=== PATIENT | male | born 1990 | race Caucasian/White ===

== ENCOUNTER 2021-07-16 08:24 | Emergency (ER) | payer OTHER, MEDICAID, SELFPAY ==
[2021-07-16 08:42] VITALS: BP 149/63; PULSE 94; RESP 14; TEMP 36.4; O2SAT 96; BMI 27.5
--- NOTE | 2021-07-16 08:49 | ED.SKABFB ---
HPI - Skin/Abscess/Foreign Bdy General Chief complaint: Urogenital-Male Stated complaint: Rash on lower abd x 7 days Time Seen by Provider: 07/16/21 08:32 Source: patient Mode of arrival: Ambulatory Limitations: no limitations History of Present Illness HPI narrative: 31-year-old male nonsmoker in previously healthy presents with his significant other and a chief complaint of a slightly itchy rash on his central lower abdomen over the past week or so. He denies any systemic findings such as fever, chills nor nausea or vomiting. He denies any prior skin infections. He has attempted a few [id number] creams without any relief. He admits to recently shaving in this area, use of a hot tub and frequent intercourse with likely involvement of friction as a consequence. He denies any abdominal pain, change in bowel habits. He has no dysuria, frequency, urgency or discharge. Related Data Previous Rx's Medication Instructions Recorded doxycycline hyclate 100 mg tablet 100 mg PO BID #14 tab 07/16/21 Allergies Allergy/AdvReac Type Severity Reaction Status Date / Time No Known Drug Allergies Allergy Verified 07/16/21 08:45 Review of Systems Review of Systems Narrative: GENERAL: Denies chills, fatigue, malaise, fever, sweats. HEENT: Denies sinus pain, ear pain, sore throat, difficulty swallowing, dizziness. RESPIRATORY: Denies dyspnea, cough, wheezing, hemoptysis, sputum. CARDIOVASCULAR: Denies chest pain, palpitations, orthopnea, edema, GASTROINTESTINAL: Denies nausea, vomiting, abdominal pain, diarrhea, constipation, melena. : Denies dysuria, frequency, incontinence, hematuria, urinary retention. MUSCULOSKELETAL: denies weakness, joint pain, or bony pain SKIN: See HPI NEUROLOGIC: Denies weakness, headache, numbness, change in speech, confusion, seizures, incoordination. PSYCHIATRIC: No concerning psychosocial issues. 12 point review of systems is negative except for those stated above Patient History Substance Use Type: does not use Exam Narrative Exam Narrative: GEN: AOx3 and in mild distress EYES: Pupils are equal, round, and reactive to light and accommodation. Extraoccular muscles are intact bilaterally. There is no subconjunctival hemorrhage or exudate. CHEST: Lungs are clear to auscultation bilaterally and free of wheezes, rales, or rhonchi. Heart rate is regular rhythm, there are no murmurs, clicks, rubs, or gallops. There is no chest wall tenderness. ABD: Abdomen is soft and nontender. There is no guarding or rebound. Bowel sounds are normal in all 4 quadrants. There is no mass or organomegaly. EXT: Full painless ROM of all extremities with no loss of sensation or strength. SKIN: Multiple very small pustules with very minimal surrounding erythema at the base of each hair follicle most consistent with folliculitis, less likely cellulitis, no evidence of induration or fluctuance to suggest abscess Initial Vital Signs Initial Vital Signs: Vital Signs Temperature 97.6 F 07/16/21 08:42 Pulse Rate 94 H 07/16/21 08:42 Respiratory Rate 14 07/16/21 08:42 Blood Pressure 149/63 H 07/16/21 08:42 Pulse Oximetry 96 07/16/21 08:42 Course Orders Ordered: Discontinued Medications Doxycycline Hyclate (Doxycycline Hyclate 100 Mg Tablet) 100 mg PO NOW ONE Stop: 07/16/21 08:49 Last Admin: 07/16/21 09:09 Dose: 100 mg Documented by: Vital Signs Vital signs: Vital Signs - 8 hr 07/16/21 08:42 Temperature 97.6 F Pulse Rate 94 H Respiratory Rate 14 Blood Pressure 149/63 H Pulse Oximetry 96 Discharge Plan Departure Patient Disposition: Home Clinical Impression: Folliculitis Instructions: DI for Folliculitis Activity Restrictions/Additional Instructions: *You have been diagnosed with [folliculitis of lower anterior abdomen. As we discussed there is no indication of cellulitis or abscess. *What to do: *Please continue to take your regular medications as directed. [x ] New medication prescriptions sent to your pharmacy: [ [facility]] [ ] New medication written as a paper prescription [ ] No new medications given *Please follow up with your primary care provider in 2-3 days, call for an appointment. Let them know you were seen in the Emergency Department and that we ask that you be seen in follow up. We will electronically transmit a record of today's note if your PCP is in our system *This antibiotic has the potential to give you a bit of stomach upset which can be offset by the use of probiotics. Also, and especially important given your upcoming trip to [place], this complete you at increased risk of sunburn, please be extra careful with sunscreen *If you do not have a primary care provider please contact the [facility] Resource line at [phone]. They will ask some questions about your medical history and help get you set up with a doctor in the community. *Return to Emergency Department if you should have any new, worsening or concerning symptoms, such as [fever greater than 101 F, shaking chills, worsening pain, persistent vomiting or other bothersome symptoms] Prescriptions: New doxycycline hyclate 100 mg tablet 100 mg PO BID Qty: 14 0RF
[2021-07-16] MEDS: DOXYCYCLINE HYCLATE 100 MG TABLET PO (09:09)
== END 2021-07-16 09:15 | disposition home or self-care (01) ==
PROVIDERS: Emergency Provider Emergency Medicine; Family Provider Nurse Practitioner
DX: L73.9 Follicular disorder, unspecified (principal)
CPT/HCPCS: 99283